=== PATIENT | female | born 1965 | race Caucasian/White ===

== ENCOUNTER 2021-11-15 12:51 | Emergency (ER) | payer BC ==
[2021-11-15] MEDS ORDERED: Ketorolac Tromethamine 30 MG/ML VIAL ONE (13:10)
[2021-11-15] MEDS ORDERED: Lidocaine 1% PF 5 ML VIAL ONE (13:13)
== END 2021-11-15 13:37 | disposition home or self-care (01) ==
LOC: CSHERS 12:51
DX: M62.830 Muscle spasm of back (principal); G62.9 Polyneuropathy, unspecified; X50.0XXA Overexertion from strenuous movement or load, initial encounter; Z79.899 Other long term (current) drug therapy
CPT/HCPCS: 96372; 99283; J1885

== ENCOUNTER 2023-08-24 11:06 | Outpatient (CLI) | payer OTHER | END 2023-08-24 11:07 | disposition home or self-care (01) | LOC: CSHMAMMO 11:06 | PROVIDERS: ATTEND Family Medicine | DX: Z12.31 Encounter for screening mammogram for malignant neoplasm of breast (principal); Z80.3 Family history of malignant neoplasm of breast; Z98.82 Breast implant status | CPT/HCPCS: 77063; 77067 ==